=== PATIENT | female | born 1980 ===

== ENCOUNTER 2023-09-19 07:53 | Day surgery (SDC) | payer OTHER ==
[2023-09-13 11:15] LABS: PH,URINE 5.5 (5.0-8.0); URINE APPEARANCE Clear; URINE BILIRRUBIN Negative (NEGATIVE); URINE BLOOD Small; URINE COLOR Yellow; URINE GLUCOSE Negative (NEGATIVE); URINE LEUKOCYTE Trace; URINE NITRATE Negative; URINE PROTEIN Negative (NEGATIVE); URINE UROBILINOGEN 0.2 E.U./dl
[2023-09-13 11:19] LABS: URINE BACTERIA 565.6 uL (0.0-1933); URINE EPITHELIAL CELLS 25.1 uL (0.0-38.8); URINE RBC 2.7 uL (0.0-20.8); URINE WBC 14.3 uL (0.0-23.2)
[2023-09-13 11:21] LABS: HEMOGLOBIN 13.5 g/dL (12.0-15.00); MEAN CORPUSCULAR HEMOGLOBIN 33.4 pg (27.00-32.0); MEAN CORPUSCULAR HGB CONC 35.6 g/dl (32.0-36.0); PLATELET COUNT 328 K/uL (150-450); RED BLOOD COUNT 4.05 M/uL (4.00-6.00); RED CELL DISTRIBUTION WIDTH 12.7 % (11.5-14.5)
[2023-09-13 11:42] LABS: INR 1.01; PARTIAL THROMBOPLASTIN TIME 29.9 SECONDS (22.0-34.0); PROTHROMBIN TIME 10.6 SECONDS (9.0-11.5)
[2023-09-13 12:14] LABS: ALBUMIN 4.4 gm/dL (3.4-5.0); BILIRUBIN TOTAL 0.61 mg/dL (0.3-1.2); CALCIUM 9.8 mg/dL (8.5-10.1); CREATININE SERUM 0.71 mg/dL (0.55-1.02); GFR 89.85; GLOBULINA 3.5 G/DL (2.4-3.5); POTASSIUM 3.87 mEq/L (3.5-5.1); TOTAL PROTEIN 7.9 gm/dL (6.4-8.2); TSH 1.82 uIU/mL (0.358-3.74)
[~2023-09-19 07:53] MED LIST: ALLEGRA ALLERG180 MG
[2023-09-19] MEDS ORDERED: CEFOXITIN SODIUM 2,000 MG VIAL IV ONE (09:30)
[2023-09-19] MEDS ORDERED: POVIDONE-IODINE 118 ML BOTT TOP ONE (09:30)
[2023-09-19] MEDS ORDERED: PROMETHAZINE HCL 50 MG/ML AMPUL IM ONE (10:00)
[2023-09-19] MEDS ORDERED: MORPHINE SULFATE 4 MG/ML VIAL IV PRN (10:00)
[2023-09-19] MEDS ORDERED: MORGIDOX100 MG PO (10:04)
[2023-09-19] MEDS ORDERED: Tylenol #3 PO (10:04)
== END 2023-09-19 15:15 | disposition home or self-care (01) ==
LOC: CIR.AMB 07:53
PROVIDERS: ATTEND Obstetrics & Gynecology
DX: D25.0 Submucous leiomyoma of uterus (principal); N84.0 Polyp of corpus uteri; N92.5 Other specified irregular menstruation; Z88.6 Allergy status to analgesic agent; Z91.013 Allergy to seafood